=== PATIENT | male | born 1965 | race African-American/Black ===

== ENCOUNTER 2025-01-12 13:53 | Emergency (ER) | payer OTHER ==
[~2025-01-12] VITALS: Ht 160 cm; Wt 82.0 kg
[~2025-01-12 13:53] MED LIST: AMIODARONE HCL 50MG/ML 3ML VIAL IV ONE; ATOR20TA PO; ATROPINE SULFATE 1MG/10ML SYR ONE; CALCIUM CHLORIDE 1GM/10ML SYR IV ONE; EPINEPHRINE 0.1MG/ML (1:10,000) 10ML SYR ONE; INSNOV SUBCUT; INSU100I20 SQ; LISI-652 PO; SODIUM BICARBONATE 8.4% 50MEQ/50ML SYR IV ONE
[2025-01-12 13:55] VITALS: O2SAT 0
[2025-01-12 14:00] VITALS: PULSE 88; RESP 30
[2025-01-12 14:01] VITALS: PULSE 84; RESP 34; TEMP 38.4; O2SAT 78
[2025-01-12] MEDS ORDERED: ACETAMINOPHEN 650MG/20.3ML UDC NG PRN (14:15)
[2025-01-12] MEDS ORDERED: ACETAMINOPHEN 650MG SUPP PR PRN (14:15)
[2025-01-12 14:17] VITALS: TEMP 101.6
[2025-01-12 14:25] LABS: BASOPHILS % 0.9 % (0.0-2.0); EOSINOPHILS % 0.2 % (0.0-5.0); HEMATOCRIT. 37.1 % (42.0-52.0); HEMOGLOBIN. 11.2 g/dL (14.0-18.0); LYMPHOCYTES % 10.1 % (20.0-50.0); MEAN PLATELET VOLUME 7.8 fl (7.4-10.4); MONOCYTES % 8.8 % (2.0-8.0); NEUTROPHILS % 80.0 % (40.0-76.0); PLATELET 299 x1000/uL (130-400); RED BLOOD CELL COUNT 4.68 mill/uL (4.7-6.1); RED CELL DISTRIBUTION WIDTH 17.3 % (11.6-14.6)
[2025-01-12] MEDS: EPINEPHRINE 1:1000 1 MG/ML AMP INJ ONE (14:31)
[2025-01-12 14:32] VITALS: BP 90/18
[2025-01-12] MEDS: NOREPINEPHRINE 8MG/250ML PMX 250 ML IV ONE (14:32)
[2025-01-12 14:34] LABS: INR 1.2
[2025-01-12 14:37] LABS: CREATININE 2.2 mg/dL (0.6-1.3)
[2025-01-12 14:38] LABS: TROPONIN I HIGH SENSITIVITY 42 ng/L (3.0-53); UREA NITROGEN BLOOD 32 mg/dL (9-23)
[2025-01-12 14:40] LABS: PHOSPHORUS 5.3 mg/dL (2.5-4.9)
[2025-01-12] MEDS ORDERED: ACETAMINOPHEN 1000MG/100ML 100 ML IV SCH (15:00)
[2025-01-12] MEDS ORDERED: *TENECTEPLASE FOR AIS XX SCH (15:30)
[2025-01-12] MEDS: TENECTEPLASE 50MG/VIAL (FOR MI OR PE) IV ONE (15:34)
== END 2025-01-12 17:07 ==
LOC: ER 13:53 → CANBEDREQ 15:17 → ER 17:07
DX: I46.9 Cardiac arrest, cause unspecified (principal); E11.9 Type 2 diabetes mellitus without complications; I10 Essential (primary) hypertension; I45.10 Unspecified right bundle-branch block; Z46.59 Encounter for fitting and adjustment of other gastrointestinal appliance and device; Z79.4 Long term (current) use of insulin; Z79.01 Long term (current) use of anticoagulants; Z79.899 Other long term (current) drug therapy
CPT/HCPCS: 80048; 82962; 83880; 83735; 84100; 85025; 85610; 85730; 84484; 36415; 71045; 93005; 31500; 99285; J0282; J0461; J3490 ×4; J3101; Z7610; 94002; J0131